=== PATIENT | male | born 1970 | race African-American/Black ===

== ENCOUNTER 2017-08-27 02:34 | Emergency (ER) | payer SELFPAY ==
[2017-08-27 03:05] LABS: #Basophils 0.1 thou/uL (0.0-0.2); #Eosinphils 0.7 thou/uL (0.0-0.7); #Lymphocytes 2.7 thou/uL (1.20-3.40); #Monocytes 0.8 thou/uL (0.11-0.59); #Neutrophils 5.3 thou/uL (1.40-6.50); %Basophils 0.9 % (0.0-1.0); %Eosinophils 7.1 % (0.0-10.0); %Lymphocytes 28.5 % (21.0-51.0); %Neutrophils 55.6 % (42.0-75.0); Hemoglobin 14.2 g/dL (14.0-18.0); Mean Corpuscular Hemoglobin 26.9 pg (27.0-31.0); Mean Corpuscular Volume 81.4 fl (80.0-94.0); Mean Platelet Volume 6.1 fL (7.4-10.4); Platelet Count 349 thou/uL (130-400); RBC Distribution Width 12.7 % (11.5-14.5); Red Blood Cell (RBC) Count 5.28 mill/uL (4.70-6.10); White Blood Cell (WBC) Count 9.6 thou/uL (4.8-10.8)
[2017-08-27] MEDS ORDERED: Nitroglycerin 0.4 MG TAB (25 Tab Bottle) ONE (03:06)
[2017-08-27 03:29] LABS: ALT (SGPT) 22 U/L (8-55); AST (SGOT) 40 U/L (5-34); Albumin 4.1 g/dL (3.5-5.0); Alkaline Phosphatase 81 U/L (40-150); Anion Gap 10 mmol/L (10-20); BUN (Urea Nitrogen) 13 mg/dL (8.9-20.6); Bilirubin, Total 0.5 mg/dL (0.2-1.2); CK (CPK) 1042 U/L (30-200); Calc. Creatinine Clearance 0 mL/min (70-130); Calcium 9.6 mg/dL (7.8-10.44); Carbon Dioxide 26 mmol/L (22-29); Chloride 108 mmol/L (98-107); Estimated GFR-MDRD 79; Globulin 3.9 g/dL (2.4-3.5); Glucose 95 mg/dL (70-105); Lipase 14 U/L (8-78); Potassium 3.9 mmol/L (3.5-5.1); Sodium 140 mmol/L (136-145)
[2017-08-27 03:38] LABS: CKMB 5.8 ng/mL (0-6.6); Troponin I Less than 0.010 ng/mL (< 0.028)
[2017-08-27] MEDS ORDERED: Ketorolac Tromethamine 30 MG/ML VIAL ONE (03:51)
--- NOTE | 2017-08-27 08:37 | RAD ---
RADIOGRAPH CHEST 1 VIEW: HISTORY: 47-year-old male with chest pain. FINDINGS: There are no air space densities, pulmonary edema, pneumothorax, or cardiomegaly. The lateral costop hrenic angles are sharp. IMPRESSION: No acute cardiopulmonary findings. jn POS: [facility]
--- NOTE | 2017-08-30 15:45 | EKG ---
Test Reason : Blood Pressure : / mmHG Vent. Rate : 064 BPM Atrial Rate : 064 BPM P-R Int : 134 ms QRS Dur : 106 ms QT Int : 398 ms P-R-T Axes : 008 -05 027 degrees QTc Int : 410 ms Normal sinus rhythm Normal ECG Confirmed by CHELSEA VAZQUEZ D.O. ([id number]), editorial director VALERIA FAGAN ([id number]) on 08/30/2017 3:45:29 PM Referred By: Confirmed By:CHELSEA VAZQUEZ D.O.
== END 2017-08-27 04:33 | disposition home or self-care (01) ==
LOC: ERS 02:34
DX: R07.89 Other chest pain (principal); E78.5 Hyperlipidemia, unspecified; I10 Essential (primary) hypertension; F17.210 Nicotine dependence, cigarettes, uncomplicated; J45.909 Unspecified asthma, uncomplicated
CPT/HCPCS: 71045; 80053; 82553; 83690; 83880; 84484; 85025; 93005; 96374; J1885

== ENCOUNTER 2022-07-17 13:21 | Emergency (ER) | payer SELFPAY ==
[2022-07-17] MEDS ORDERED: Dexamethasone 10 MG/ML VIAL ONE (15:33)
[2022-07-17] MEDS ORDERED: Ketorolac Tromethamine 30 MG/ML VIAL ONE (15:33)
== END 2022-07-17 15:42 | disposition home or self-care (01) ==
LOC: ERS 13:21
DX: M25.562 Pain in left knee (principal); M25.561 Pain in right knee; E78.5 Hyperlipidemia, unspecified; I10 Essential (primary) hypertension; F17.210 Nicotine dependence, cigarettes, uncomplicated
CPT/HCPCS: J1100; J1885

== ENCOUNTER 2022-11-05 15:17 | Emergency (ER) | payer BC, SELFPAY ==
[2022-11-05] MEDS ORDERED: Ketorolac Tromethamine 30 MG/ML VIAL ONE (15:44)
== END 2022-11-05 16:19 | disposition home or self-care (01) ==
LOC: ERS 15:17
DX: M25.511 Pain in right shoulder (principal); E78.5 Hyperlipidemia, unspecified; I10 Essential (primary) hypertension; F17.210 Nicotine dependence, cigarettes, uncomplicated; X50.0XXA Overexertion from strenuous movement or load, initial encounter
CPT/HCPCS: 96372; J1885

== ENCOUNTER 2023-04-21 20:16 | Emergency (ER) | payer OTHER | END 2023-04-21 22:06 | disposition left against medical advice (07) | LOC: ERS 20:16 | DX: Z53.21 Procedure and treatment not carried out due to patient leaving prior to being seen by health care provider (principal) ==

== ENCOUNTER 2023-06-09 06:33 | Emergency (ER) | payer OTHER | END 2023-06-09 07:21 | disposition home or self-care (01) | LOC: ERS 06:33 | DX: M25.511 Pain in right shoulder (principal); M25.512 Pain in left shoulder; G89.29 Other chronic pain; I10 Essential (primary) hypertension; E78.00 Pure hypercholesterolemia, unspecified; F17.210 Nicotine dependence, cigarettes, uncomplicated | CPT/HCPCS: 99283 ==

== ENCOUNTER 2024-01-12 15:50 | Emergency (ER) | payer OTHER, SELFPAY ==
[2024-01-12] MEDS ORDERED: Dexamethasone 10 MG/ML VIAL ONE (17:04)
[2024-01-12] MEDS ORDERED: Ketorolac Tromethamine 30 MG (1 mL) VIAL ONE (17:04)
== END 2024-01-12 17:25 | disposition home or self-care (01) ==
LOC: ERS 15:50
DX: G89.29 Other chronic pain (principal); M25.561 Pain in right knee; M25.562 Pain in left knee; I10 Essential (primary) hypertension; E78.00 Pure hypercholesterolemia, unspecified; F17.210 Nicotine dependence, cigarettes, uncomplicated
CPT/HCPCS: 96372; 99283; J1100; J1885

== ENCOUNTER 2024-07-28 10:14 | Emergency (ER) | payer SELFPAY ==
[2024-07-28] MEDS ORDERED: predniSONE 20 MG TAB ONE (11:23)
== END 2024-07-28 12:01 | disposition home or self-care (01) ==
LOC: ERS 10:14
DX: J18.9 Pneumonia, unspecified organism (principal); J45.909 Unspecified asthma, uncomplicated; I10 Essential (primary) hypertension; F17.210 Nicotine dependence, cigarettes, uncomplicated
CPT/HCPCS: 71046; 87081; 87428; 87430; J7512

== ENCOUNTER 2025-03-30 14:04 | Emergency (ER) | payer OTHER, SELFPAY ==
[2025-03-30] MEDS ORDERED: Ondansetron PF 4 MG/2 ML Vial ONE (15:38)
[2025-03-30] MEDS ORDERED: Cefepime 2 GM VIAL ONE (15:39)
[2025-03-30 15:54] LABS: #Basophils 0.05 10x3/uL (0.0-0.2); #Eosinophils 0.66 10x3/uL (0.0-0.7); #Monocytes 0.95 10x3/uL (0.11-0.59); #Neutrophils 9.59 10x3/uL (1.40-6.50); %Basophils 0.4 % (0.0-1.0); %Eosinophils 4.7 % (0.0-10.0); %Lymphocytes 19.8 % (21.0-51.0); %Monocytes 6.8 % (0.0-10.0); %Neutrophils 68.1 % (42.0-75.0); Hematocrit 46.8 % (42.0-52.0); Hemoglobin 14.5 g/dL (14.0-18.0); Mean Corpuscular Hemoglobin 25.2 pg (27.0-31.0); Mean Corpuscular Volume 81.4 fL (78.0-98.0); Platelet Count 353 10x3/uL (130-400); Red Blood Cell (RBC) Count 5.75 mill/uL (4.70-6.10); White Blood Cell (WBC) Count 14.07 10x3/uL (4.8-10.8)
[2025-03-30 16:10] LABS: ALT (SGPT) 23 U/L (Less than 45); AST (SGOT) 40 U/L (11-34); Albumin 3.5 g/dL (3.1-4.5); Alkaline Phosphatase 68 U/L (40-110); Anion Gap 13 mmol/L (10-20); BUN (Urea Nitrogen) 15 mg/dL (8.4-25.7); Bilirubin, Total 0.3 mg/dL (0.3-1.2); Calc. Creatinine Clearance 0 mL/min (70-130); Calcium 9.1 mg/dL (7.8-10.44); Carbon Dioxide 22 mmol/L (22-29); Chloride 108 mmol/L (98-107); Globulin 3.3 g/dL (2.4-3.5); Glucose 93 mg/dL (70-105); Potassium 4.4 mmol/L (3.5-5.1); Sodium 139 mmol/L (136-145)
[2025-03-30] MEDS ORDERED: Vancomycin (BATCH) 2.5 GM in Premix 1 BAG IVPB SCH (17:00)
[2025-03-31 11:52] LABS: Syphilis Antibody Index 0.05 S/CO (<1.00 Non-Reactive)
== END 2025-03-30 18:54 | disposition home or self-care (01) ==
LOC: ERS 14:04
DX: L03.116 Cellulitis of left lower limb (principal); L03.115 Cellulitis of right lower limb; I10 Essential (primary) hypertension; E78.00 Pure hypercholesterolemia, unspecified; F17.210 Nicotine dependence, cigarettes, uncomplicated; Z79.899 Other long term (current) drug therapy
CPT/HCPCS: 80053; 85025; 86141; 86780; 87040; 96365; 96366; 96367; 96375; J0692; J2270; J3373

== ENCOUNTER 2025-04-19 15:06 | Emergency (ER) | payer SELFPAY ==
[~2025-04-19 15:06] MED LIST: Iopamidol-370 76% 500 ML MDV (1 ML CHARGE) ONE
[2025-04-19 15:41] LABS: #Basophils 0.05 10x3/uL (0.0-0.2); #Eosinophils 0.47 10x3/uL (0.0-0.7); #Monocytes 0.77 10x3/uL (0.11-0.59); #Neutrophils 9.53 10x3/uL (1.40-6.50); %Basophils 0.4 % (0.0-1.0); %Eosinophils 3.6 % (0.0-10.0); %Lymphocytes 17.4 % (21.0-51.0); %Monocytes 5.9 % (0.0-10.0); %Neutrophils 72.5 % (42.0-75.0); Hematocrit 42.3 % (42.0-52.0); Hemoglobin 13.2 g/dL (14.0-18.0); Mean Corpuscular Hemoglobin 25.3 pg (27.0-31.0); Mean Corpuscular Volume 81.2 fL (78.0-98.0); Platelet Count 297 10x3/uL (130-400); Red Blood Cell (RBC) Count 5.21 mill/uL (4.70-6.10); White Blood Cell (WBC) Count 13.13 10x3/uL (4.8-10.8)
[2025-04-19 15:55] LABS: ALT (SGPT) 21 U/L (Less than 45); AST (SGOT) 32 U/L (11-34); Albumin 3.3 g/dL (3.1-4.5); Alkaline Phosphatase 56 U/L (40-110); Anion Gap 14 mmol/L (10-20); BUN (Urea Nitrogen) 15 mg/dL (8.4-25.7); Bilirubin, Total 0.3 mg/dL (0.3-1.2); Calc. Creatinine Clearance 0 mL/min (70-130); Calcium 8.7 mg/dL (7.8-10.44); Carbon Dioxide 24 mmol/L (22-29); Chloride 109 mmol/L (98-107); Globulin 3.3 g/dL (2.4-3.5); Glucose 112 mg/dL (70-105); Potassium 4.2 mmol/L (3.5-5.1); Sodium 143 mmol/L (136-145)
[2025-04-19] MEDS ORDERED: Dexamethasone 10 MG/ML VIAL ONE (15:59)
[2025-04-19] MEDS ORDERED: Ketorolac Tromethamine 30 MG (1 mL) VIAL ONE (15:59)
[2025-04-19 16:57] LABS: Burr Cells SLIGHT = 2-5 cells HPF (0-1); Macrocytosis SLIGHT = 6-15 cells HPF (0-5); Platelet Adequacy Comment Platelets Increased
== END 2025-04-19 20:57 | disposition home or self-care (01) ==
LOC: ERS 15:06
DX: S10.15XA Superficial foreign body of throat, initial encounter (principal); J02.9 Acute pharyngitis, unspecified; I10 Essential (primary) hypertension; D64.9 Anemia, unspecified; F17.210 Nicotine dependence, cigarettes, uncomplicated; Z55.6 Problems related to health literacy; W57.XXXA Bitten or stung by nonvenomous insect and other nonvenomous arthropods, initial encounter
CPT/HCPCS: 70491; 71045; 74019; 74176; 80053; 84484; 85025; 87081; 87430; 93005; 96374; J1100; J1885; Q9967

== ENCOUNTER 2025-05-24 15:14 | Emergency (ER) | payer SELFPAY ==
[2025-05-24] MEDS ORDERED: Ondansetron PF 4 MG/2 ML Vial ONE (16:00)
[2025-05-24] MEDS ORDERED: Cefepime 2 GM VIAL ONE (16:01)
[2025-05-24] MEDS ORDERED: Vancomycin 1 GM/200 ML (FROZEN) BAG ONE (16:01)
[2025-05-24 16:05] LABS: #Basophils 0.05 10x3/uL (0.0-0.2); #Eosinophils 0.84 10x3/uL (0.0-0.7); #Monocytes 0.74 10x3/uL (0.11-0.59); #Neutrophils 9.43 10x3/uL (1.40-6.50); %Basophils 0.4 % (0.0-1.0); %Eosinophils 6.2 % (0.0-10.0); %Lymphocytes 17.8 % (21.0-51.0); %Monocytes 5.5 % (0.0-10.0); %Neutrophils 69.8 % (42.0-75.0); Hematocrit 45.1 % (42.0-52.0); Hemoglobin 14.0 g/dL (14.0-18.0); Mean Corpuscular Hemoglobin 25.2 pg (27.0-31.0); Mean Corpuscular Volume 81.1 fL (78.0-98.0); Platelet Count 361 10x3/uL (130-400); Red Blood Cell (RBC) Count 5.56 mill/uL (4.70-6.10); White Blood Cell (WBC) Count 13.51 10x3/uL (4.8-10.8)
[2025-05-24 16:14] LABS: ALT (SGPT) 20 U/L (Less than 45); AST (SGOT) 34 U/L (11-34); Albumin 3.8 g/dL (3.1-4.5); Alkaline Phosphatase 68 U/L (40-110); Anion Gap 14 mmol/L (10-20); BUN (Urea Nitrogen) 10 mg/dL (8.4-25.7); Bilirubin, Total 0.3 mg/dL (0.3-1.2); Calc. Creatinine Clearance 0 mL/min (70-130); Calcium 9.3 mg/dL (7.8-10.44); Carbon Dioxide 24 mmol/L (22-29); Chloride 106 mmol/L (98-107); Globulin 3.6 g/dL (2.4-3.5); Glucose 109 mg/dL (70-105); Potassium 3.9 mmol/L (3.5-5.1); Sodium 140 mmol/L (136-145)
== END 2025-05-24 17:54 | disposition home or self-care (01) ==
LOC: ERS 15:14
DX: L03.115 Cellulitis of right lower limb (principal); B35.3 Tinea pedis; I10 Essential (primary) hypertension; F17.210 Nicotine dependence, cigarettes, uncomplicated; Z23 Encounter for immunization
CPT/HCPCS: 80053; 83605; 85025; 86141; 87040; 90471; 90715; 96365; 96375; J0692; J2270; J2405; J3373